=== PATIENT | male | born 1980 | race Caucasian/White ===

== ENCOUNTER 2019-08-17 15:36 | Emergency (ER) | payer SELFPAY ==
[~2019-08-17] VITALS: Ht 182.9 cm; Wt 111.4 kg
[~2019-08-17 15:36] MED LIST: LEVEMIR FLEX100 U/ML SQ; NEXIUM20 MG PO
[2019-08-17 16:11] LABS: EOS # 0.2 (0.04-0.40); EOS % 2.2 % (0.0-4.0); HEMATOCRIT 46.1 % (42.0-52.0); HEMOGLOBIN 16.7 g/dL (13.5-18.0); LYMPH# 3.4 (1.50-4.00); MEAN CELL VOLUME 92 fl (78-100); MEAN CORPUSCULAR HEMOGLOBIN 33 pg (27-31); MEAN CORPUSCULAR HGB CONC 36 g/dL (33-37); MEAN PLATELET VOLUME 9.8 fl (7.4-10.4); MONO # 0.6 (0.20-0.80); NEU # 4.1 (1.40-6.50); PLATELET COUNT 185 K/mm3 (130-400); RED BLOOD COUNT 5.04 M/mm3 (4.20-5.60); RED CELL DISTRIBUTION WIDTH 12.8 % (11.5-14.5); WHITE BLOOD COUNT 8.4 K/mm3 (4.8-10.8)
[2019-08-17 16:21] LABS: ALBUMIN 4.2 g/dL (3.5-5.0); POTASSIUM 4.3 mmol/L (3.5-5.1)
[2019-08-17 16:22] LABS: CALCIUM 9.2 mg/dL (8.3-10.5)
[2019-08-17 16:24] LABS: TOTAL PROTEIN 7.3 g/dL (6.4-8.3)
[2019-08-17 16:32] LABS: URINE APPEARANCE CLEAR; URINE BILIRUBIN NEGATIVE (NEGATIVE); URINE BLOOD TRACE (NEGATIVE); URINE COLOR YELLOW; URINE KETONE NEGATIVE (NEGATIVE); URINE LEUKOCYTE ESTERASE NEGATIVE (NEGATIVE); URINE NITRATE NEGATIVE (NEGATIVE); URINE PROTEIN(semi-quant) TRACE mg/dL (NEGATIVE); URINE UROBILINOGEN NORMAL (NORMAL); URINE WBC 0-1 /hpf (0-3)
[2019-08-17] MEDS ORDERED: SYNTHROID RP0.1 MG PO (17:35)
[2019-08-17] MEDS ORDERED: GLUCOPHAGE PO (17:35)
[2019-08-17] MEDS ORDERED: SIMVASTATIN10 M1 PO (17:35)
[2019-08-17 17:59] VITALS: BP 146/91
== END 2019-08-17 18:00 | disposition home or self-care (01) ==
LOC: ED 15:36
PROVIDERS: Physician Assistant
DX: E11.65 Type 2 diabetes mellitus with hyperglycemia (principal); E03.9 Hypothyroidism, unspecified; E78.5 Hyperlipidemia, unspecified; K21.9 Gastro-esophageal reflux disease without esophagitis; F17.210 Nicotine dependence, cigarettes, uncomplicated; Z79.4 Long term (current) use of insulin; Z79.890 Hormone replacement therapy; Z91.14 Patient's other noncompliance with medication regimen
CPT/HCPCS: J1815; J7030

== ENCOUNTER 2020-06-18 07:50 | Emergency (ER) | payer SELFPAY ==
[2020-06-18 07:50] VITALS: BP 138/110
[~2020-06-18 07:50] MED LIST changes: +GLUCOPHAGE PO; +SIMVASTATIN10 M1 PO; +SYNTHROID RP0.1 MG PO
== END 2020-06-18 08:15 | disposition left against medical advice (07) ==
LOC: ED 07:50
DX: H92.01 Otalgia, right ear (principal); R22.0 Localized swelling, mass and lump, head; E11.9 Type 2 diabetes mellitus without complications; Z88.0 Allergy status to penicillin; Z88.2 Allergy status to sulfonamides; Z79.84 Long term (current) use of oral hypoglycemic drugs